=== PATIENT | female | born 2000 | race Two or more races ===

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

== ENCOUNTER 2021-04-13 14:45 | Emergency (ER) | payer MEDICAID ==
[2021-04-13] MEDS ORDERED: Sodium Chloride 0.9% 10 ML Syringe FLUSH PRN (15:30)
[2021-04-13] MEDS ORDERED: Metoclopramide 10 MG/2 ML SDV IVPUSH ONE (15:31)
[2021-04-13] MEDS ORDERED: diphenhydrAMINE 50 MG/ML SDV IVPUSH ONE (15:31)
[2021-04-13] MEDS ORDERED: Ketorolac 30 MG/ML SDV IVPUSH ONE (15:31)
--- NOTE | 2021-04-13 15:49 | EDM.PDOC ---
ED HPI GENERAL MEDICAL PROBLEM - General Chief Complaint: Headache Stated Complaint: poss COVID Time Seen by Provider: 04/13/21 15:29 Source of Information: Reports: Patient, RN Notes Reviewed History Limitations: Reports: No Limitations - History of Present Illness INITIAL COMMENTS - FREE TEXT/NARRATIVE: Patient is a 20-year-old female who presents to the ER for the evaluation of her headache, and other [id number] symptoms. Patient states that she was positive for COVID-19 in August 2020. States that she felt well up until about 3 days ago, when she developed a generalized headache, low back pain/body aches, but no fevers, chills, or any sort of nausea or vomiting. She is having some generalized looser stools however she does not feel dizzy or lightheaded, and is able to eat and drink appropriately. Patient states that her headache is not the worst headache she is ever had in her whole entire life, but it is somewhat bothersome. She did try to take some Tylenol ibuprofen for management today, helped a little bit but states that the headache came back in a short amount of time. She states that she did not like taking medications too much. She denies any chance of at today's visit. She did not receive COVID-19 vaccine after her initial Covid infection. Head Pain Score (Numeric/FACES): 8 - Related Data Allergies Allergy/AdvReac Type Severity Reaction Status Date / Time misquito Allergy Mild Hives Uncoded 04/13/21 15:32 Home Meds: Home Meds Cefdinir [Omnicef] 300 mg PO BID 5 Days #10 cap 04/13/21 [Rx] dexAMETHasone [Decadron] 6 mg PO DAILY 10 Days #10 tablet 04/13/21 [Rx] norgestrel-ethinyl estradioL [Elinest-28 Tablet] 1 tab PO DAILY 04/13/21 [History] Past Medical History HEENT History: Reports: Impaired Vision Cardiovascular History: Reports: Other (See Below) Other Cardiovascular History: "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 Respiratory History: Reports: Asthma, Bronchitis, Recurrent STERILE SUPERVISOR History: Reports: Other (See Below) Other STERILE SUPERVISOR History: Herpes simplex 2 Musculoskeletal History: Reports: Back Pain, Chronic Psychiatric History: Reports: Anxiety, Depression - Infectious Disease History Infectious Disease History: Reports: Herpes, Novel Coronavirus (08/2020) - Past Surgical History GI Surgical History: Reports: Appendectomy Social & Family History - Family History Family Medical History: No Pertinent Family History - Tobacco Use Tobacco Use Status *Q: Never Tobacco User Second Hand Smoke Exposure: No - Caffeine Use Caffeine Use: Reports: Soda - Recreational Drug Use Recreational Drug Use: No - Living Situation & Occupation Living situation: Reports: Single Occupation: Employed ED ROS GENERAL - Review of Systems Review Of Systems: Comprehensive ROS is negative, except as noted in HPI. - Physical Exam Exam: See Below Exam Limited By: No Limitations General Appearance: Alert, WD/WN, No Apparent Distress Respiratory/Chest: No Respiratory Distress, Lungs Clear, Normal Breath Sounds, No Accessory Muscle Use, Chest Non-Tender Cardiovascular: Normal Peripheral Pulses, Regular Rate, Rhythm, No Edema Neuro Exam (Abbreviated): Alert, Oriented, Normal Cognition, No Motor/Sensory Deficits Extremities: Normal Inspection, Normal Capillary Refill Psychiatric: Normal Affect, Normal Mood Skin Exam: Warm, Dry, Intact, Normal Color, No Rash Course - Vital Signs Last Recorded V/S: Last Vital Signs Temp 97.6 F 04/13/21 15:33 Pulse 103 H 04/13/21 15:33 Resp 16 04/13/21 15:33 BP 131/83 04/13/21 15:33 Pulse Ox 98 04/13/21 15:33 - Orders/Labs/Meds Orders: Active Orders 24 hr Category Date Time Status Peripheral IV Care [RC] . DIRECTED Care 04/13/21 15:31 Ordered CULTURE URINE [MREF] Urgent Lab 04/13/21 16:43 Ordered Sodium Chloride 0.9% [Saline Flush] Med 04/13/21 15:30 Ordered 10 ml FLUSH ASDIRECTED PRN Peripheral IV Insertion Adult [OM.PC] Routine Oth 04/13/21 15:30 Ordered Medication Orders Sodium Chloride (Sodium Chloride 0.9% 10 Ml Syringe) 10 ml FLUSH ASDIRECTED PRN PRN Reason: Keep Vein Open Last Admin: 04/13/21 15:59 Dose: 10 ml Documented by: STEPHANIE Labs: Laboratory Tests 04/13/21 04/13/21 04/13/21 Range/Units 16:00 16:00 16:03 WBC 4.30 (3.98-10.04) K/mm3 RBC 4.65 (3.98-5.22) M/mm3 Hgb 14.8 (11.2-15.7) gm/dl Hct 43.8 (34.1-44.9) % MCV 94.2 D (79.4-94.8) fl MCH 31.8 (25.6-32.2) pg MCHC 33.8 (32.2-35.5) g/dl RDW Std Deviation 43.8 (36.4-46.3) fL Plt Count 320 (182-369) K/mm3 MPV 10.0 (9.4-12.3) fl Neut % (Auto) 62.1 (34.0-71.1) % Lymph % (Auto) 17.9 L (19.3-51.7) % [place] % (Auto) 18.8 H (4.7-12.5) % Eos % (Auto) 0.5 L (0.7-5.8) Baso % (Auto) 0.5 (0.1-1.2) % Neut # (Auto) 2.67 (1.56-6.13) K/mm3 Lymph # (Auto) 0.77 L (1.18-3.74) K/mm3 [place] # (Auto) 0.81 H (0.24-0.36) K/mm3 Eos # (Auto) 0.02 L (0.04-0.36) K/mm3 Baso # (Auto) 0.02 (0.01-0.08) K/mm3 Sodium 136 (136-145) mEq/L Potassium 3.6 (3.5-5.1) mEq/L Chloride 101 (98-107) mEq/L Carbon Dioxide 27 (21-32) mEq/L Anion Gap 11.6 (5-15) BUN 9 (7-18) mg/dL Creatinine 0.8 (0.55-1.02) mg/dL Est Cr Clr Drug Dosing TNP Estimated GFR (MDRD) > 60 (>60) mL/min BUN/Creatinine Ratio 11.3 L (14-18) Glucose 82 (70-99) mg/dL Calcium 8.8 (8.5-10.1) mg/dL Total Bilirubin 0.6 (0.2-1.0) mg/dL AST 20 (15-37) U/L ALT 23 (14-59) U/L Alkaline Phosphatase 77 (46-116) U/L C-Reactive Protein 1.2 H* (<1.0) mg/dL Total Protein 8.4 H (6.4-8.2) g/dl Albumin 4.2 (3.4-5.0) g/dl Globulin 4.2 gm/dL Albumin/Globulin Ratio 1.0 (1-2) Urine Color Yellow (Yellow) Urine Appearance Cloudy H (Clear) Urine pH 6.0 (5.0-8.0) Ur Specific [place] > or = 1.030 (1.005-1.030) Urine Protein Trace H (Negative) Urine Glucose (UA) Negative (Negative) Urine Ketones 4+ H (Negative) Urine Occult Blood Trace-intact H (Negative) Urine Nitrite Positive H (Negative) Urine Bilirubin Negative (Negative) Urine Urobilinogen 0.2 (0.2-1.0) Ur Leukocyte Esterase Negative (Negative) Urine RBC 0-5 (0-5) /hpf Urine WBC 0-5 (0-5) /hpf Ur Squamous Epith Cells 0-5 (0-5) /hpf Urine Bacteria Many H (FEW) /hpf Urine Mucus Few (FEW) /hpf SARS-CoV-2 RNA (MIKKI) (NEGATIVE) 04/13/21 Range/Units 16:15 WBC (3.98-10.04) K/mm3 RBC (3.98-5.22) M/mm3 Hgb (11.2-15.7) gm/dl Hct (34.1-44.9) % MCV (79.4-94.8) fl MCH (25.6-32.2) pg MCHC (32.2-35.5) g/dl RDW Std Deviation (36.4-46.3) fL Plt Count (182-369) K/mm3 MPV (9.4-12.3) fl Neut % (Auto) (34.0-71.1) % Lymph % (Auto) (19.3-51.7) % [place] % (Auto) (4.7-12.5) % Eos % (Auto) (0.7-5.8) Baso % (Auto) (0.1-1.2) % Neut # (Auto) (1.56-6.13) K/mm3 Lymph # (Auto) (1.18-3.74) K/mm3 [place] # (Auto) (0.24-0.36) K/mm3 Eos # (Auto) (0.04-0.36) K/mm3 Baso # (Auto) (0.01-0.08) K/mm3 Sodium (136-145) mEq/L Potassium (3.5-5.1) mEq/L Chloride (98-107) mEq/L Carbon Dioxide (21-32) mEq/L Anion Gap (5-15) BUN (7-18) mg/dL Creatinine (0.55-1.02) mg/dL Est Cr Clr Drug Dosing Estimated GFR (MDRD) (>60) mL/min BUN/Creatinine Ratio (14-18) Glucose (70-99) mg/dL Calcium (8.5-10.1) mg/dL Total Bilirubin (0.2-1.0) mg/dL AST (15-37) U/L ALT (14-59) U/L Alkaline Phosphatase (46-116) U/L C-Reactive Protein (<1.0) mg/dL Total Protein (6.4-8.2) g/dl Albumin (3.4-5.0) g/dl Globulin gm/dL Albumin/Globulin Ratio (1-2) Urine Color (Yellow) Urine Appearance (Clear) Urine pH (5.0-8.0) Ur Specific [place] (1.005-1.030) Urine Protein (Negative) Urine Glucose (UA) (Negative) Urine Ketones (Negative) Urine Occult Blood (Negative) Urine Nitrite (Negative) Urine Bilirubin (Negative) Urine Urobilinogen (0.2-1.0) Ur Leukocyte Esterase (Negative) Urine RBC (0-5) /hpf Urine WBC (0-5) /hpf Ur Squamous Epith Cells (0-5) /hpf Urine Bacteria (FEW) /hpf Urine Mucus (FEW) /hpf SARS-CoV-2 RNA (MIKKI) Positive H (NEGATIVE) Meds: Medications Generic Name Dose Route Start Last Admin Trade Name Freq PRN Reason Stop Dose Admin Sodium Chloride 10 ml 04/13/21 15:30 04/13/21 15:59 Sodium Chloride 0.9% 10 Ml Syringe FLUSH 10 ml ASDIRECTED PRN Administration Keep Vein Open Discontinued Medications Generic Name Dose Route Start Last Admin Trade Name [place] PRN Reason Stop Dose Admin Diphenhydramine HCl 25 mg 04/13/21 15:31 04/13/21 15:59 Diphenhydramine 50 Mg/Ml Sdv IVPUSH 04/13/21 15:32 25 mg ONETIME ONE Administration Ketorolac Tromethamine 30 mg 04/13/21 15:31 04/13/21 15:59 Ketorolac 30 Mg/Ml Sdv IVPUSH 04/13/21 15:32 30 mg ONETIME ONE Administration Metoclopramide HCl 10 mg 04/13/21 15:31 04/13/21 16:01 Metoclopramide 10 Mg/2 Ml Sdv IVPUSH 04/13/21 15:32 10 mg ONETIME ONE Administration - Re-Assessments/Exams Free Text/Narrative Re-Assessment/Exam: 04/13/21 15:48 Patient presents to the ER for the evaluation of her headache, and other COVID- 19 symptoms, we will go ahead and get a coronavirus swab for today's purposes, give her some medication for her headache, get some basic labs for initial evaluation. 04/13/21 16:56 Urinalysis is positive for a UTI, and the patient's Covid screen did also come back positive. We will go ahead and discharge her home with a course of oral dexamethasone, and oral antibiotics for ongoing management. Departure - Departure Time of Disposition: 16:57 Disposition: Home, Self-Care 01 Condition: Good Clinical Impression: COVID-19 UTI (urinary tract infection) Qualifiers: Urinary tract infection type: acute cystitis Hematuria presence: with hematuria Qualified Code(s): N30.01 - Acute cystitis with hematuria - Discharge Information *PRESCRIPTION DRUG MONITORING PROGRAM REVIEWED*: No *COPY OF PRESCRIPTION DRUG MONITORING REPORT IN PATIENT [place]: No Prescriptions: dexAMETHasone [Decadron] 6 mg PO DAILY 10 Days #10 tablet Cefdinir [Omnicef] 300 mg PO BID 5 Days #10 cap Instructions: 10 Things You Can Do to Manage Your COVID-19 Symptoms at Home - [facility] (02/04/2020) Forms: ED Department Discharge, ED Return to Work/School Form Additional Instructions: You have been evaluated in the ED for your back pain, and ongoing respiratory symptoms. Your urinalysis was consistent with an acute urinary tract infection. Your urine was sent for culture, and you will be notified if you should need a change in your antibiotic. This may take up to 48 hours to result. Your Covid screen did also come back positive for today's purposes, you will need to isolate yourself away from others, for at least 10 days, or and told otherwise by the [facility]. A work note has been provided to her to reflect this. You have been given a prescription for dexamethasone, you will take 1 tablet daily for the next 10 days for ongoing COVID-19 disease. You may take AZO for urinary pain relief. This is available over the counter, and can be attained at any retail store like [employer] or any pharmacy. Please be aware that this medication will make your urine turn orange. You should only use this medication for a time period not longer than 72 hours. You have been given a prescription for Omnicef (cefdinir), 300 mg 1 tablet 2 times a day for 5 days. Please note that the antibiotics can take up to 48 hours to start working. This medication was electronically sent to the [facility] pharmacy located on [address]. Please increase your oral fluid intake and try to stay adequately hydrated. Please return to the ED if your symptoms change or worsen. Sepsis Event Note (ED) - Evaluation Sepsis Screening Result: Possible Sepsis Risk - Focused Exam Vital Signs: Vital Signs Temp Pulse Resp BP Pulse Ox 04/13/21 15:33 97.6 F 103 H 16 131/83 98 - My Orders Last 24 Hours: My Active Orders 04/13/21 15:30 Sodium Chloride 0.9% [Saline Flush] 10 ml FLUSH ASDIRECTED PRN Peripheral IV Insertion Adult [OM.PC] Routine 04/13/21 15:31 Peripheral IV Care [RC] . DIRECTED 04/13/21 16:43 CULTURE URINE [MREF] Urgent - Assessment/Plan Last 24 Hours: My Active Orders 04/13/21 15:30 Sodium Chloride 0.9% [Saline Flush] 10 ml FLUSH ASDIRECTED PRN Peripheral IV Insertion Adult [OM.PC] Routine 04/13/21 15:31 Peripheral IV Care [RC] . DIRECTED 04/13/21 16:43 CULTURE URINE [MREF] Urgent
== END 2021-04-13 17:13 | disposition home or self-care (01) ==
LOC: JD.ED 14:45
DX: U07.1 COVID-19 (principal); N30.01 Acute cystitis with hematuria; Z91.09 Other allergy status, other than to drugs and biological substances
CPT/HCPCS: 36415; 80053; 81001; 85025; 86140; 87086; 87088; 87186; 87635; 96374; 96375; 99284; J1200; J1885; J2765; U0002

== ENCOUNTER 2021-06-25 07:24 | Emergency (ER) | payer MEDICAID ==
--- NOTE | 2021-06-25 07:53 | EDM.PDOC ---
ED HPI GENERAL MEDICAL PROBLEM - General Chief Complaint: General Stated Complaint: SOB/HAD COVID 3 MONTHS AGO Time Seen by Provider: 06/25/21 07:48 Source of Information: Reports: Patient History Limitations: Reports: No Limitations - History of Present Illness INITIAL COMMENTS - FREE TEXT/NARRATIVE: 20-year-old female presents to the ED with acute onset of fever chills body a ches, headache loss of appetite, nausea and vomiting mild diarrhea. She states she had COVID-19 3 months ago and had a relatively mild illness. She is just starting to cough not producing any sputum. Complains of sore throat and inability to eat. Pain radiates up into ears with swallowing. She still has her tonsils. Symptoms started approximately 2-1/2 days ago. She denies any possibility of . Onset: Gradual Onset Date: 06/23/21 Duration: Day(s):, Constant, Getting Worse Location: Reports: Head ( headache), Neck (Sore throat), Chest (Minimal cough), Generalized (Generalized myalgia), Other (High fever with chills.) Quality: Reports: Ache (Generalized body aches), Other (Headache) Severity: Moderate Improves with: Reports: Rest Worsens with: Reports: Movement Context: Denies: Activity, Exercise, Lifting, Sick Contact, Trauma, Other Associated Symptoms: Reports: Cough, Fever/Chills, Loss of Appetite, Malaise, Nausea/Vomiting (Fever and chills starting 2 and half days ago), Weakness ( nausea and vomiting cannot keep water down this morning generalized weakness). 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) (Nothing will stay down.) headache Pain Score (Numeric/FACES): 8 back Pain Score (Numeric/FACES): 8 - Related Data Allergies Allergy/AdvReac Type Severity Reaction Status Date / Time misquito Allergy Mild Hives Uncoded 06/25/21 07:43 Home Meds: Home Meds norgestrel-ethinyl estradioL [Elinest-28 Tablet] 1 tab PO DAILY 04/13/21 [History] Cefdinir [Omnicef] 300 mg PO BID #14 cap 06/25/21 [Rx] valACYclovir HCl [valACYclovir] 06/25/21 [History] Past Medical History HEENT History: Reports: Impaired Vision Cardiovascular History: Reports: Other (See Below) Other Cardiovascular History: "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 History: Herpes simplex 2 Musculoskeletal History: Reports: Back Pain, Chronic Psychiatric History: Reports: Anxiety, Depression - Infectious Disease History Infectious Disease History: Reports: Herpes, Novel Coronavirus - Past Surgical History Head Surgeries/Procedures: Reports: None GI Surgical History: Reports: Appendectomy Female Surgical History: Reports: None Social & Family History - Family History Family Medical History: No Pertinent Family History - Tobacco Use Tobacco Use Status *Q: Never Tobacco User - Caffeine Use Caffeine Use: Reports: Soda - Recreational Drug Use Recreational Drug Use: No - Living Situation & Occupation Living situation: Reports: Single Occupation: Employed ED ROS GENERAL - Review of Systems Review Of Systems: See Below Constitutional: Reports: Fever, Chills, Malaise, Weakness, Fatigue, Decreased Appetite HEENT: Reports: Throat Pain (Pain radiates up into ears with swallowing) Respiratory: Reports: Shortness of Breath, Cough. Denies: Wheezing, Pleuritic Chest Pain, Sputum, Hemoptysis (Nonproductive) Cardiovascular: Denies: Chest Pain, Blood Pressure Problem, Claudication, Dyspnea on Exertion, Edema, Lightheadedness, Orthopnea, Palpitations Endocrine: Reports: Fatigue GI/Abdominal: Reports: Diarrhea (Mild diarrhea twice yellow in color), Decreased Appetite, Nausea, Vomiting (Nothing will stay down even water this morning) : Reports: Other (Urine is dark and [place] in color) Musculoskeletal: Reports: Muscle Pain (Generalized myalgia) Skin: Reports: No Symptoms Neurological: Reports: Dizziness, Headache. Denies: Confusion, Pre-Existing Deficit, Seizure, Trouble Speaking, Difficulty Walking, Weakness Psychiatric: Reports: No Symptoms Hematologic/Lymphatic: Reports: No Symptoms Immunologic: Reports: No Symptoms ED EXAM, GENERAL - Physical Exam Exam: See Below Exam Limited By: No Limitations General Appearance: Alert, WD/WN, Mild Distress, Other (Very warm to palpation. Recorded temperature is 36.8 but this is incorrect she is much warmer than this. Heart rate is 120 and sinus at the bedside respiratory is 20 with a BP of 120/80 and a pulse ox of 100% room air.) Eye Exam: Bilateral Eye: Normal Inspection (No blepharal pallor or scleral icterus) Ears: Normal TMs Throat/Mouth: Other (Mild diffuse erythema of the oropharynx without exudate.) Head: Atraumatic, Normocephalic Neck: Normal Inspection, Supple, Non-Tender, Full Range of Motion. No: Carotid Bruit, Lymphadenopathy (L), Lymphadenopathy (R) Respiratory/Chest: Lungs Clear, Normal Breath Sounds, No Accessory Muscle Use, Respiratory Distress (Mild tachypnea secondary to fever.) Cardiovascular: Normal Peripheral Pulses, Regular Rate, Rhythm, No Edema, No Gallop, No Murmur, No Rub Peripheral Pulses: 3+: Carotid (L), Carotid (R), Posterior Tibial (L), Posterior Tibial (R), Dorsalis Pedis (L), Dorsalis Pedis (R) GI/Abdominal: Normal Bowel Sounds, Soft, Non-Tender, No Organomegaly, No Distention, Other (Evidence of previous laparoscopic appendectomy) Back Exam: Normal Inspection, Full Range of Motion. No: CVA Tenderness (L), CVA Tenderness (R) Extremities: Normal Inspection, Normal Range of Motion, Non-Tender, No Pedal Edema Neurological: Alert, Oriented, CN II-XII Intact, Normal Cognition Psychiatric: Normal Affect, Normal Mood Skin Exam: Warm, Dry, Normal Color, No Rash Course - Vital Signs Last Recorded V/S: Last Vital Signs Temp 36.5 C 06/25/21 10:00 Pulse 88 06/25/21 10:00 Resp 16 06/25/21 10:00 BP 101/59 L 06/25/21 10:00 Pulse Ox 99 06/25/21 10:00 - Orders/Labs/Meds Orders: Active Orders 24 hr Category Date Time Status BLOOD CULTURE [MREF] Stat Lab 06/25/21 08:50 Received Dextrose 5%-0.9% NaCl [Dextrose 5%-Normal Saline] 1,000 Med 06/25/21 08:00 Active ml IV ASDIRECTED Ketorolac [Toradol] Med 06/25/21 08:00 Active 30 mg IVPUSH ONETIME Blood Culture x2 Reflex Set [OM.PC] Stat Oth 06/25/21 07:55 Ordered Medication Orders Dextrose/Sodium Chloride (Dextrose 5%-Normal Saline) 1,000 mls @ 999 mls/hr IV ASDIRECTED [facility] Last Admin: 06/25/21 08:12 Dose: 999 mls/hr Documented by: TUCKER Ketorolac Tromethamine (Ketorolac 30 Mg/Ml Sdv) 30 mg IVPUSH ONETIME [facility] Last Admin: 06/25/21 08:10 Dose: 30 mg Documented by: TUCKER Labs: Laboratory Tests 06/25/21 06/25/21 06/25/21 Range/Units 07:50 08:01 08:01 WBC 17.47 H (3.98-10.04) K/mm3 RBC 4.31 (3.98-5.22) M/mm3 Hgb 13.8 (11.2-15.7) gm/dl Hct 40.2 (34.1-44.9) % MCV 93.3 (79.4-94.8) fl MCH 32.0 (25.6-32.2) pg MCHC 34.3 (32.2-35.5) g/dl RDW Std Deviation 41.6 (36.4-46.3) fL Plt Count 298 (182-369) K/mm3 MPV 10.9 (9.4-12.3) fl Neutrophils % (Manual) 85 H (40-60) % Band Neutrophils % 0 (0-10) % Lymphocytes % (Manual) 10 L (20-40) % Atypical Lymphs % 0 % Monocytes % (Manual) 5 (2-10) % Eosinophils % (Manual) 0 L (0.7-5.8) % Basophils % (Manual) 0 L (0.1-1.2) Platelet Estimate Adequate RBC Morph Comment Normal Sodium 136 (136-145) mEq/L Potassium 4.0 (3.5-5.1) mEq/L Chloride 101 (98-107) mEq/L Carbon Dioxide 20 L (21-32) mEq/L Anion Gap 19.0 H (5-15) BUN 8 (7-18) mg/dL Creatinine 0.5 L (0.55-1.02) mg/dL Est Cr Clr Drug Dosing 147.23 mL/min Estimated GFR (MDRD) > 60 (>60) mL/min BUN/Creatinine Ratio 16.0 (14-18) Glucose 96 (70-99) mg/dL Lactic Acid (0.4-2.0) mmol/L Calcium 9.0 (8.5-10.1) mg/dL Total Bilirubin 0.8 (0.2-1.0) mg/dL AST 29 (15-37) U/L ALT 17 (14-59) U/L Alkaline Phosphatase 78 (46-116) U/L C-Reactive Protein 8.5 H* (<1.0) mg/dL Total Protein 7.7 (6.4-8.2) g/dl Albumin 4.0 (3.4-5.0) g/dl Globulin 3.7 gm/dL Albumin/Globulin Ratio 1.1 (1-2) Urine Color (Yellow) Urine Appearance (Clear) Urine pH (5.0-8.0) Ur Specific [place] (1.005-1.030) Urine Protein (Negative) Urine Glucose (UA) (Negative) Urine Ketones (Negative) Urine Occult Blood (Negative) Urine Nitrite (Negative) Urine Bilirubin (Negative) Urine Urobilinogen (0.2-1.0) Ur Leukocyte Esterase (Negative) Urine RBC (0-5) /hpf Urine WBC (0-5) /hpf Ur Squamous Epith Cells (0-5) /hpf Urine Bacteria (FEW) /hpf Urine Mucus (FEW) /hpf Influenza Type A RNA Negative (NEGATIVE) Influenza Type B RNA Negative (NEGATIVE) SARS-CoV-2 RNA (MIKKI) Negative (NEGATIVE) Group A Strep (PCR) (NOT DETECT) 06/25/21 06/25/21 06/25/21 Range/Units 08:24 08:50 09:20 WBC (3.98-10.04) K/mm3 RBC (3.98-5.22) M/mm3 Hgb (11.2-15.7) gm/dl Hct (34.1-44.9) % MCV (79.4-94.8) fl MCH (25.6-32.2) pg MCHC (32.2-35.5) g/dl RDW Std Deviation (36.4-46.3) fL Plt Count (182-369) K/mm3 MPV (9.4-12.3) fl Neutrophils % (Manual) (40-60) % Band Neutrophils % (0-10) % Lymphocytes % (Manual) (20-40) % Atypical Lymphs % % Monocytes % (Manual) (2-10) % Eosinophils % (Manual) (0.7-5.8) % Basophils % (Manual) (0.1-1.2) Platelet Estimate RBC Morph Comment Sodium (136-145) mEq/L Potassium (3.5-5.1) mEq/L Chloride (98-107) mEq/L Carbon Dioxide (21-32) mEq/L Anion Gap (5-15) BUN (7-18) mg/dL Creatinine (0.55-1.02) mg/dL Est Cr Clr Drug Dosing mL/min Estimated GFR (MDRD) (>60) mL/min BUN/Creatinine Ratio (14-18) Glucose (70-99) mg/dL Lactic Acid 1.2 (0.4-2.0) mmol/L Calcium (8.5-10.1) mg/dL Total Bilirubin (0.2-1.0) mg/dL AST (15-37) U/L ALT (14-59) U/L Alkaline Phosphatase (46-116) U/L C-Reactive Protein (<1.0) mg/dL Total Protein (6.4-8.2) g/dl Albumin (3.4-5.0) g/dl Globulin gm/dL Albumin/Globulin Ratio (1-2) Urine Color Light yellow (Yellow) Urine Appearance Clear (Clear) Urine pH 6.0 (5.0-8.0) Ur Specific [place] 1.020 (1.005-1.030) Urine Protein Negative (Negative) Urine Glucose (UA) 2+ H (Negative) Urine Ketones 2+ H (Negative) Urine Occult Blood Negative (Negative) Urine Nitrite Negative (Negative) Urine Bilirubin Negative (Negative) Urine Urobilinogen 0.2 (0.2-1.0) Ur Leukocyte Esterase Negative (Negative) Urine RBC 0-5 (0-5) /hpf Urine WBC 0-5 (0-5) /hpf Ur Squamous Epith Cells 0-5 (0-5) /hpf Urine Bacteria Few (FEW) /hpf Urine Mucus Few (FEW) /hpf Influenza Type A RNA (NEGATIVE) Influenza Type B RNA (NEGATIVE) SARS-CoV-2 RNA (MIKKI) (NEGATIVE) Group A Strep (PCR) Not detected (NOT DETECT) Meds: Medications Generic Name Dose Route Start Last Admin Trade Name Idalia PRN Reason Stop Dose Admin Dextrose/Sodium Chloride 1,000 mls @ 999 mls/hr 06/25/21 08:00 06/25/21 08:12 Dextrose 5%-Normal Saline IV 999 mls/hr ASDIRECTED EDY Administration Ketorolac Tromethamine 30 mg 06/25/21 08:00 06/25/21 08:10 Ketorolac 30 Mg/Ml Sdv IVPUSH 30 mg ONETIME EDY Administration Discontinued Medications Generic Name Dose Route Start Last Admin Trade Name Idalia PRN Reason Stop Dose Admin Acetaminophen 975 mg 06/25/21 07:59 06/25/21 08:13 Acetaminophen 325 Mg Tab PO 06/25/21 08:00 975 mg ONETIME ONE Administration Ceftriaxone Sodium 2 gm/ 100 mls @ 200 mls/hr 06/25/21 09:13 06/25/21 09:24 Sodium Chloride IV 06/25/21 09:42 200 mls/hr ONETIME ONE Administration Metoclopramide HCl 7.5 mg 06/25/21 07:57 06/25/21 08:08 Metoclopramide 10 Mg/2 Ml Sdv IVPUSH 06/25/21 07:58 7.5 mg ONETIME ONE Administration - Radiology Interpretation Free Text/Narrative:: 20-year-old female presents to the ED with a 2-1/2-day history of fever chills headache diffuse myalgia, sore throat, nausea and vomiting with mild diarrhea. Minimal cough. All signs symptoms of COVID-19 illness. She reports she had COVID-19 illness diagnosed 3 months ago. She works at [employer]. She has not been vaccinated and should have natural immunity to COVID-19 if it test was positive. At present she appears ill and is quite warm to palpation. Septic work-up will be performed. This will include rapid strep and urinalysis. 1 view chest x-ray. IV will be D5 normal saline at open. Given Reglan 7.5 mg IV for nausea relief. Will give Tylenol 975 mg per ora 20 minutes after the Reglan has been infused. Toradol 30 mg IV for generalized myalgia - Re-Assessments/Exams Free Text/Narrative Re-Assessment/Exam: 06/25/21 08:40 portable chest x-ray reveals no abnormalities. Heart and mediastinum are normal. Lungs are clear.White count is elevated at 17.47 with a left shift of 85% neutrophils. Hemoglobin is 13.8 with hematocrit of 40.2 and a platelet count of tender 98,000 06/25/21 09:05 Chemistry reveals a sodium 136 and a potassium of 4.0. Chloride is 101 with a bicarb of 20 and an anion gap of 19.0 BUN is 8 with a creatinine of 0.5 and a GFR greater than 60. Glucose is 96. Calcium is 9.0 liver function is normal. C-reactive protein elevated 8.5 total protein 7.7 with an albumin fraction of 4.0 06/25/21 09:13 I am going to proceed with Rocephin 2 g intravenously due to elevated white count and CRP of 8.3 suggesting bacterial infection likely coming from her throat. Unfortunately the rapid strep is Covid and influenza screen are not yet available 06/25/21 10:23 Urinalysis shows 2+ glucosuria and 2+ ketones. The micro is negative for any signs of infection. Influenza and COVID-19 screen are negative. Rapid strep is negative as well. Since she is coughing diagnosis is bronchitis without pneumonia. I am going to place her on Omnicef 300 mg twice daily for another 7 days starting tomorrow morning. She has completed her Rocephin infusion Departure - Departure Time of Disposition: 10:32 Disposition: Home, Self-Care 01 Condition: Fair Clinical Impression: Upper respiratory tract infection Qualifiers: URI type: unspecified URI Qualified Code(s): J06.9 - Acute upper respiratory infection, unspecified - Discharge Information *PRESCRIPTION DRUG MONITORING PROGRAM REVIEWED*: Not Applicable *COPY OF PRESCRIPTION DRUG MONITORING REPORT IN PATIENT [place]: Not Applicable Prescriptions: Cefdinir [Omnicef] 300 mg PO BID #14 cap Referrals: Bri Silver NP [Primary Care Provider] - Forms: ED Department Discharge Additional Instructions: Evaluation in the emergency room this morning in regards to sore throat generalized myalgia headache and mild early cough concerning for possible COVID- 19 illness. By history you had COVID-19 illness 3 months ago. You should have antibodies that last a good 6 to 8 months against this virus. However with the variance Covid screen was once again completed and proved to be negative. Influenza screen was negative is as well. Chest x-ray was negative for any signs of pneumonia at this time. Lab test however reveal evidence of bacterial infection with a elevated white blood cell count and a CRP elevated at 8.3 normal is 1. You are treated with initial dose of antibiotics Rocephin 2 g intravenously in the emergency room. You will need to take oral antibiotic Omnicef 300 mg twice daily for the next 7 days with the first tablet to be taken tomorrow morning. Continue either Tylenol 650 mg every 4 hours or Motrin 600 mg every 6 hours for fever, body aches and headache relief. Expect improvement ov er the next 48 to 72 hours if not you need to be seen again by your personal care physician. Sepsis Event Note (ED) - Evaluation Sepsis Screening Result: No Definite Risk - Focused Exam Vital Signs: Vital Signs Temp Pulse Resp BP Pulse Ox 06/25/21 10:00 36.5 C 88 16 101/59 L 99 06/25/21 07:37 36.8 C 119 H 20 120/80 100 - My Orders Last 24 Hours: My Active Orders 06/25/21 07:55 Blood Culture x2 Reflex Set [OM.PC] Stat 06/25/21 08:00 Dextrose 5%-0.9% NaCl [Dextrose 5%-Normal Saline] 1,000 ml IV ASDIRECTED Ketorolac [Toradol] 30 mg IVPUSH ONETIME 06/25/21 08:50 BLOOD CULTURE [MREF] Stat - Assessment/Plan Last 24 Hours: My Active Orders 06/25/21 07:55 Blood Culture x2 Reflex Set [OM.PC] Stat 06/25/21 08:00 Dextrose 5%-0.9% NaCl [Dextrose 5%-Normal Saline] 1,000 ml IV ASDIRECTED Ketorolac [Toradol] 30 mg IVPUSH ONETIME 06/25/21 08:50 BLOOD CULTURE [MREF] Stat
[2021-06-25] MEDS ORDERED: Metoclopramide 10 MG/2 ML SDV IVPUSH ONE (07:57)
[2021-06-25] MEDS ORDERED: Acetaminophen 325 MG Tab PO ONE (07:59)
[2021-06-25] MEDS ORDERED: Dextrose 5%-0.9% NaCl 1,000 ML IV SCH (08:00)
[2021-06-25] MEDS ORDERED: Ketorolac 30 MG/ML SDV IVPUSH SCH (08:00)
--- NOTE | 2021-06-25 08:42 | CR ---
Chest: Frontal view of the chest was obtained. Comparison: Prior chest x-ray of 12/24/17. Heart size and mediastinum are normal. Lungs are clear with no acute parenchymal change. No acute osseous abnormality is appreciated. Impression: 1. Nothing acute is seen on frontal chest x-ray. Diagnostic code #1
[2021-06-25] MEDS ORDERED: cefTRIAXone 2 GM in Sodium Chloride 0.9% 100 ML IV ONE (09:13)
[2021-06-25 09:58] LABS: CORONAVIRUS COVID-19 NAA NEGATIVE (NEGATIVE)
== END 2021-06-25 10:45 | disposition home or self-care (01) ==
LOC: JD.ED 07:24
DX: J06.9 Acute upper respiratory infection, unspecified (principal); J45.909 Unspecified asthma, uncomplicated; Z91.048 Other nonmedicinal substance allergy status; Z20.822 Contact with and (suspected) exposure to COVID-19
CPT/HCPCS: 0240U; 36415; 71045; 80053; 81001; 83605; 85007; 85027; 86140; 87040; 87651; 96365; 96375; 99284; A9270; J0696; J1885; J2765; J7042

== ENCOUNTER 2021-09-07 08:57 | Emergency (ER) | payer MEDICAID | END 2021-09-07 09:41 | disposition left against medical advice (07) | LOC: JD.ED 08:57 | DX: Z53.21 Procedure and treatment not carried out due to patient leaving prior to being seen by health care provider (principal) ==

== ENCOUNTER 2021-11-05 16:14 | Emergency (ER) | payer MEDICAID | END 2021-11-05 19:54 | disposition home or self-care (01) | LOC: JD.ED 16:14 | DX: O99.891 Other specified diseases and conditions complicating pregnancy (principal); R10.2 Pelvic and perineal pain; O99.511 Diseases of the respiratory system complicating pregnancy, first trimester; J06.9 Acute upper respiratory infection, unspecified; Z91.09 Other allergy status, other than to drugs and biological substances; Z3A.01 Less than 8 weeks gestation of pregnancy | CPT/HCPCS: 36415; 76817; 76817-26; 80053; 81001; 84702; 85025; 99284-25 ==

== ENCOUNTER 2021-11-13 12:19 | Emergency (ER) | payer MEDICAID ==
[2021-11-13] MEDS ORDERED: Cephalexin 500 MG Cap PO ONE (14:17)
== END 2021-11-13 14:45 | disposition home or self-care (01) ==
LOC: JD.ED 12:19
DX: N30.00 Acute cystitis without hematuria (principal); Z91.048 Other nonmedicinal substance allergy status
CPT/HCPCS: 36415; 80053; 81001; 83735; 85025; 86140; 87086; 99284; A9270; 87088; 87186

== ENCOUNTER 2021-12-05 09:52 | Emergency (ER) | payer MEDICAID ==
[2021-12-05] MEDS ORDERED: Sodium Chloride 0.9% 1,000 ML IV STA (10:16)
[2021-12-05] MEDS ORDERED: Sodium Chloride 0.9% 10 ML Syringe FLUSH PRN (10:16)
[2021-12-05] MEDS ORDERED: Metoclopramide 10 MG/2 ML SDV IVPUSH ONE (10:16)
[2021-12-05] MEDS ORDERED: diphenhydrAMINE 50 MG/ML SDV IVPUSH ONE (10:18)
[2021-12-05] MEDS ORDERED: Ketorolac 15 MG/ML SDV IVPUSH ONE (10:18)
== END 2021-12-05 12:30 | disposition home or self-care (01) ==
LOC: JD.ED 09:52
DX: O21.9 Vomiting of pregnancy, unspecified (principal); Z3A.11 11 weeks gestation of pregnancy; Z91.09 Other allergy status, other than to drugs and biological substances; Z86.16 Personal history of COVID-19
CPT/HCPCS: 36415; 80053; 83690; 84702; 85025; 86140; 96374; 96375; 99284; J1200; J1885; J2765; J3490; J7030

== ENCOUNTER 2022-01-02 15:23 | Emergency (ER) | payer MEDICAID | END 2022-01-02 16:06 | disposition home or self-care (01) | LOC: JD.ED 15:23 | DX: B07.0 Plantar wart (principal); Z79.899 Other long term (current) drug therapy; Z86.16 Personal history of COVID-19; Z90.49 Acquired absence of other specified parts of digestive tract; Z91.038 Other insect allergy status | CPT/HCPCS: 99283 ==

== ENCOUNTER 2022-01-08 08:54 | Emergency (ER) | payer MEDICAID ==
[2022-01-08 10:03] LABS: ESTIMATED GFR > 60 mL/min (>60)
== END 2022-01-08 12:10 | disposition home or self-care (01) ==
LOC: JD.ED 08:54 → SUPCPDRO 08:54 → JD.ED 12:10
DX: O26.852 Spotting complicating pregnancy, second trimester (principal); Z3A.16 16 weeks gestation of pregnancy; Z79.899 Other long term (current) drug therapy; Z91.038 Other insect allergy status; Z86.16 Personal history of COVID-19; Z90.49 Acquired absence of other specified parts of digestive tract
CPT/HCPCS: 36415; 76815; 76815-26; 80053; 81001; 85025; 85610; 85730; 86850; 86900; 86901; 87086; 87088; 87186; 99284; 99284-25

== ENCOUNTER 2022-01-20 10:36 | Emergency (ER) | payer MEDICAID ==
[2022-01-20 11:53] LABS: ESTIMATED GFR 143 mL/min (>60)
== END 2022-01-20 12:50 | disposition home or self-care (01) ==
LOC: JD.ED 10:36
DX: O99.612 Diseases of the digestive system complicating pregnancy, second trimester (principal); A08.4 Viral intestinal infection, unspecified; Z91.09 Other allergy status, other than to drugs and biological substances; Z3A.18 18 weeks gestation of pregnancy
CPT/HCPCS: 36415; 76815; 76815-26; 80053; 81001; 85025; 99284-25

== ENCOUNTER 2022-02-04 10:28 | Observation (INO) | payer MEDICAID ==
[2022-02-04] MEDS ORDERED: Acetaminophen 325 MG Tab PO ONE (11:05)
[2022-02-04] MEDS ORDERED: Sodium Chloride 0.9% 10 ML Syringe FLUSH PRN (12:35)
[2022-02-04] MEDS ORDERED: oxyCODONE 5 MG Tab PO ONE ×2 (12:41→17:05)
[2022-02-04] MEDS ORDERED: ceFAZolin 2 GM in Sodium Chloride 0.9% 50 ML IV SCH (12:45)
[2022-02-04] MEDS: Lactated Ringers 1,000 ML IV SCH ×2 (13:22→20:49)
[2022-02-04] MEDS ORDERED: oxyCODONE 5 MG Tab PO PRN (13:30)
[2022-02-04] MEDS: Ondansetron 4 MG/2 ML SDV IVPUSH PRN (13:47)
[2022-02-04] MEDS: Acetaminophen 325 MG Tab PO PRN (18:30)
[2022-02-04] MEDS: ceFAZolin 1 GM in Sodium Chloride 0.9% 50 ML IV SCH (19:21)
[2022-02-04] MEDS: oxyCODONE 5 MG Tab PO PRN (20:03)
[2022-02-05] MEDS: Sodium Chloride 0.9% 10 ML Syringe FLUSH SCH ×2 (00:07→10:44)
[2022-02-05] MEDS: ceFAZolin 1 GM in Sodium Chloride 0.9% 50 ML IV SCH ×3 (00:08→12:11)
[2022-02-05] MEDS: Ondansetron 4 MG/2 ML SDV IVPUSH PRN ×4 (00:16→19:45)
[2022-02-05] MEDS: Acetaminophen 325 MG Tab PO PRN ×3 (00:35→19:44)
[2022-02-05] MEDS: oxyCODONE 5 MG Tab PO PRN ×6 (01:12→23:45)
[2022-02-05] MEDS: Lactated Ringers 1,000 ML IV SCH ×3 (04:31→19:48)
[2022-02-05] MEDS: Ampicillin 1 GM in Sodium Chloride 0.9% 100 ML IV SCH ×2 (12:45→18:43)
[2022-02-06] MEDS: Ampicillin 1 GM in Sodium Chloride 0.9% 100 ML IV SCH ×4 (01:08→18:40)
[2022-02-06] MEDS: Acetaminophen 325 MG Tab PO PRN ×3 (02:25→18:42)
[2022-02-06] MEDS: Lactated Ringers 1,000 ML IV SCH ×3 (04:14→19:29)
[2022-02-06] MEDS: oxyCODONE 5 MG Tab PO PRN ×4 (04:14→22:50)
[2022-02-06] MEDS: Sodium Chloride 0.9% 10 ML Syringe FLUSH SCH ×2 (05:13→09:27)
[2022-02-06] MEDS: Ondansetron 4 MG/2 ML SDV IVPUSH PRN (14:29)
[2022-02-07] MEDS: Ampicillin 1 GM in Sodium Chloride 0.9% 100 ML IV SCH ×2 (00:53→06:35)
[2022-02-07] MEDS: Sodium Chloride 0.9% 10 ML Syringe FLUSH SCH (03:00)
[2022-02-07] MEDS: Lactated Ringers 1,000 ML IV SCH (04:42)
[2022-02-07] MEDS: Acetaminophen 325 MG Tab PO PRN (04:45)
== END 2022-02-07 10:30 | disposition home or self-care (01) ==
LOC: JD.OBCHECK 10:28 → JD.OB 10:29 → JD.OBCHECK 12:35 → JD.OB 17:27
PROVIDERS: ADMIT Obstetrics & Gynecology; ATTEND Obstetrics & Gynecology
DX: O23.02 Infections of kidney in pregnancy, second trimester (principal); O23.42 Unspecified infection of urinary tract in pregnancy, second trimester; Z3A.19 19 weeks gestation of pregnancy; N39.0 Urinary tract infection, site not specified; Z79.899 Other long term (current) drug therapy
CPT/HCPCS: 36415; 76770; 80170; 81001; 82565; 85025; 87086; 87088; 87186; 96365; 96366; 96367; 96375; 96376; A9270; G0378; J0290; J0690; J1580; J2405; J7120

== ENCOUNTER 2022-03-24 11:05 | Emergency (ER) | payer MEDICAID | END 2022-03-24 12:00 | disposition home or self-care (01) | LOC: JD.ED 11:05 | DX: O9A.23 Injury, poisoning and certain other consequences of external causes complicating the puerperium (principal); S90.31XA Contusion of right foot, initial encounter; Z91.09 Other allergy status, other than to drugs and biological substances; Z3A.01 Less than 8 weeks gestation of pregnancy; W22.09XA Striking against other stationary object, initial encounter | CPT/HCPCS: 99282; 99283 ==

== ENCOUNTER 2022-04-28 16:52 | Emergency (ER) | payer OTHER, MEDICAID ==
[2022-04-28] MEDS ORDERED: Sodium Chloride 0.9% 1,000 ML IV SCH (17:00)
== END 2022-04-28 18:35 | disposition other institution (70) ==
LOC: JD.ED 16:52
DX: O9A.213 Injury, poisoning and certain other consequences of external causes complicating pregnancy, third trimester (principal); R10.30 Lower abdominal pain, unspecified; Z3A.32 32 weeks gestation of pregnancy; Z91.048 Other nonmedicinal substance allergy status; Z79.899 Other long term (current) drug therapy; Z86.16 Personal history of COVID-19; Z90.49 Acquired absence of other specified parts of digestive tract; V49.40XA Driver injured in collision with unspecified motor vehicles in traffic accident, initial encounter; Y92.410 Unspecified street and highway as the place of occurrence of the external cause
CPT/HCPCS: 36415; 80053; 85025; 85610; 86850; 86900; 86901; 99283; 99284

== ENCOUNTER 2022-04-28 17:50 | Observation (INO) | payer OTHER, MEDICAID ==
[2022-04-28] MEDS ORDERED: Sodium Chloride 0.9% 10 ML Syringe FLUSH SCH (21:00)
[2022-04-28] MEDS: Acetaminophen 325 MG Tab PO PRN (21:06)
[2022-04-29] MEDS: Acetaminophen 325 MG Tab PO PRN (09:27)
== END 2022-04-29 15:05 | disposition home or self-care (01) ==
LOC: JD.OBCHECK 17:50 → JD.OB 17:51 → JD.OBCHECK 19:25 → UNDOADMOB 19:25 → JD.OB 19:25 → UNDOADMOB 19:47 → JD.OB 19:47 → UNDOADMOB 21:38 → JD.OB 21:38
PROVIDERS: ADMIT Obstetrics & Gynecology; ATTEND Obstetrics & Gynecology
DX: O9A.213 Injury, poisoning and certain other consequences of external causes complicating pregnancy, third trimester (principal); O99.891 Other specified diseases and conditions complicating pregnancy; R10.9 Unspecified abdominal pain; O99.613 Diseases of the digestive system complicating pregnancy, third trimester; K21.9 Gastro-esophageal reflux disease without esophagitis; O99.343 Other mental disorders complicating pregnancy, third trimester; F41.9 Anxiety disorder, unspecified; F32.A Depression, unspecified; Z3A.31 31 weeks gestation of pregnancy; Z86.16 Personal history of COVID-19; Z90.49 Acquired absence of other specified parts of digestive tract; Z91.038 Other insect allergy status; Z79.899 Other long term (current) drug therapy; V89.2XXA Person injured in unspecified motor-vehicle accident, traffic, initial encounter
CPT/HCPCS: 59025; A9270; G0378

== ENCOUNTER 2022-06-26 19:27 | Inpatient (IN) | payer MEDICAID ==
[2022-06-26] MEDS ORDERED: Sodium Chloride 0.9% 10 ML Syringe FLUSH PRN (20:16)
[2022-06-26] MEDS ORDERED: Ondansetron 4 MG/2 ML SDV IVPUSH PRN (20:16)
[2022-06-26] MEDS ORDERED: Nalbuphine HCl 10 MG/ 1ML Amp IVPUSH PRN (20:16)
[2022-06-26] MEDS ORDERED: Ampicillin 2 GM in Sodium Chloride 0.9% 100 ML IV ONE (20:16)
[2022-06-26] MEDS: Lactated Ringers 1,000 ML IV SCH ×3 (20:38→23:21)
[2022-06-26] MEDS ORDERED: Sodium Chloride 0.9% 10 ML Syringe FLUSH SCH (21:00)
[2022-06-26] MEDS ORDERED: ePHEDrine 50 MG/ML SDV IVPUSH PRN (21:28)
[2022-06-26] MEDS ORDERED: diphenhydrAMINE 50 MG/ML SDV IVPUSH PRN (21:28)
[2022-06-26] MEDS ORDERED: fentaNYL 100 MCG/2 ML SDV EPIDUR PRN (21:28)
[2022-06-26] MEDS: Bupivacaine/fentaNYL/NS 100 ML Bag EPIDUR PRN (22:27)
[2022-06-27] MEDS: Ampicillin 1 GM in Sodium Chloride 0.9% 100 ML IV SCH ×4 (00:31→12:34)
[2022-06-27] MEDS: Oxytocin/Lactated Ringers 10 UNIT/1,000 ML BAG IV SCH ×2 (02:54→16:45)
[2022-06-27] MEDS: Lactated Ringers 1,000 ML IV SCH ×2 (02:55→13:44)
[2022-06-27] MEDS ORDERED: Lidocaine 1% 10 ML MDV ONE (04:00)
[2022-06-27] MEDS: Bupivacaine/fentaNYL/NS 100 ML Bag EPIDUR PRN (07:46)
[2022-06-27] MEDS ORDERED: Acetaminophen 325 MG Tab PO PRN (18:44)
[2022-06-27] MEDS ORDERED: Witch Hazel Medicated Pads 40/Jar TOP PRN (18:44)
[2022-06-27] MEDS ORDERED: Benzocaine/Menthol 20%-0.5% Spray 78 GM Cannister TOP PRN (18:44)
[2022-06-27] MEDS: Docusate Sodium 100 MG Cap PO PRN (20:39)
[2022-06-27] MEDS: Ibuprofen 600 MG Tab PO PRN (20:39)
[2022-06-28] MEDS: Ibuprofen 600 MG Tab PO PRN ×3 (05:11→17:25)
[2022-06-28] MEDS: Prenatal Multivitamin with Calcium/Folic Acid/Iron Tab PO SCH (09:46)
[2022-06-28] MEDS: Docusate Sodium 100 MG Cap PO PRN (09:46)
[2022-06-29] MEDS: Ibuprofen 600 MG Tab PO PRN (04:44)
[2022-06-29] MEDS: Prenatal Multivitamin with Calcium/Folic Acid/Iron Tab PO SCH (10:35)
[2022-06-29] MEDS: Docusate Sodium 100 MG Cap PO PRN (10:35)
== END 2022-06-29 11:05 | disposition home or self-care (01) | DRG 806 ==
LOC: JD.OBCHECK 19:27 → JD.OB 19:29 → JD.OBCHECK 20:15 → JD.OB 20:16 → OBSVTOIN 06-27 16:15 → JD.OB 06-27 16:16
PROVIDERS: ADMIT Obstetrics & Gynecology; ATTEND Obstetrics & Gynecology
PROC: 10D07Z6 Extraction of Products of Conception, Vacuum, Via Natural or Artificial Opening (ICD-10-PCS; principal; 2022-06-27)
PROC: 0KQM0ZZ Repair Perineum Muscle, Open Approach (ICD-10-PCS; 2022-06-27)
PROC: 10907ZC Drainage of Amniotic Fluid, Therapeutic from Products of Conception, Via Natural or Artificial Opening (ICD-10-PCS; 2022-06-27)
PROC: 3E0R3BZ Introduction of Anesthetic Agent into Spinal Canal, Percutaneous Approach (ICD-10-PCS; 2022-06-27)
DX: O99.824 Streptococcus B carrier state complicating childbirth (principal); O98.52 Other viral diseases complicating childbirth; Z37.0 Single live birth; B00.9 Herpesviral infection, unspecified; O70.1 Second degree perineal laceration during delivery; Z3A.39 39 weeks gestation of pregnancy; Z91.09 Other allergy status, other than to drugs and biological substances; Z86.16 Personal history of COVID-19; Z90.49 Acquired absence of other specified parts of digestive tract; O99.02 Anemia complicating childbirth; D64.9 Anemia, unspecified
CPT/HCPCS: 36415; 51702; 59025; 59409; 85025; 86592; A9270-GY; J0290; J2405; J2590; J3010; J7120

== ENCOUNTER 2022-09-28 17:48 | Emergency (ER) | payer MEDICAID ==
[2022-09-28] MEDS ORDERED: Ondansetron 4 MG/2 ML SDV IVPUSH ONE (18:15)
[2022-09-28] MEDS ORDERED: Sodium Chloride 0.9% 10 ML Syringe FLUSH PRN (18:15)
[2022-09-28] MEDS ORDERED: Sodium Chloride 0.9% 1,000 ML IV ONE (18:15)
== END 2022-09-28 21:11 | disposition home or self-care (01) ==
LOC: JD.ED 17:48
DX: R10.9 Unspecified abdominal pain (principal); R11.2 Nausea with vomiting, unspecified; Z91.038 Other insect allergy status
CPT/HCPCS: 36415; 80053; 81001; 81025; 85025; 96361; 96374; 99283; J2405; J3490; J7030; 99284

== ENCOUNTER 2023-11-28 22:00 | Emergency (ER) | payer MEDICAID ==
[2023-11-28] MEDS: Sodium Chloride 0.9% 1,000 ML IV ONE (22:47)
[2023-11-28 22:48] LABS: BASOPHILS PERCENT AUTO 0.2 % (0.0-1.0); EOSINOPHILS ABSOLUTE AUTO 0.1 K/mm3 (0.0-0.4); EOSINOPHILS PERCENT AUTO 0.7 % (0.0-6.0); HEMATOCRIT 40.6 % (37.0-47.0); HEMOGLOBIN 14.1 gm/dl (12.0-16.0); IMMATURE GRAN ABSOLUTE AUTO 0.03 K/mm3 (0.00-0.05); IMMATURE GRAN PERCENT AUTO 0.2 % (0.0-0.4); LYMPHOCYTES ABSOLUTE AUTO 1.7 K/mm3 (1.0-4.8); MEAN CORPUSCULAR HEMOGLOBIN 31.9 pg (28.0-32.0); MEAN CORPUSCULAR HGB CONC 34.7 g/dl (32.0-36.0); MEAN CORPUSCULAR VOLUME 91.9 fl (83.0-99.0); MEAN PLATELET VOLUME 10.3 fl (9.4-12.3); MONOCYTES ABSOLUTE AUTO 0.5 K/mm3 (0.0-0.8); MONOCYTES PERCENT AUTO 3.9 % (0.0-8.0); NEUTROPHILS ABSOLUTE AUTO 10.8 K/mm3 (1.8-7.7); PLATELET COUNT,PLT 316 K/mm3 (150-400); RED BLOOD CELL COUNT 4.42 M/mm3 (4.10-5.30); WHITE BLOOD CELL COUNT,WBC 13.13 K/mm3 (3.9-11.3)
[2023-11-28 22:49] LABS: APPEARANCE,URINE CLEAR (Clear); BILIRUBIN,URINE NEGATIVE (Negative); COLOR,URINE YELLOW (Yellow); GLUCOSE,URINE NEGATIVE (Negative); KETONES,URINE 1+ (Negative); LEUKOCYTE ESTERASE,URINE NEGATIVE (Negative); NITRITE,URINE NEGATIVE (Negative); OCCULT BLOOD,URINE NEGATIVE (Negative); PH,URINE 7.5 (5.0-8.0); PROTEIN,URINE 1+ (Negative)
[2023-11-28 23:10] LABS: RBC,URINE 0-5 /hpf (0-5)
[2023-11-28 23:11] LABS: BACTERIA,URINE FEW /hpf (FEW); EPITHELIAL CELLS,URINE 0-5 /hpf (0-5); MUCUS,URINE MODERATE /hpf (FEW); WBC,URINE 0-5 /hpf (0-5)
[2023-11-28 23:14] LABS: ALBUMIN 4.1 g/dl (3.4-5.0); ANION GAP 13.8 (5-15); BUN/CREATININE RATIO 8.8 (14-18); CALCIUM 9.1 mg/dL (8.5-10.1); CREATININE 0.8 mg/dL (0.55-1.02); EST CRCL DRUG DOSING (CG) 89.7 mL/min; POTASSIUM,K 3.8 mEq/L (3.5-5.1); PROTEIN TOTAL,TP 8.2 g/dl (6.4-8.2)
[2023-11-29] MEDS: prednisoLONE Soln 15 MG/5 ML UD Cup PO ONE (00:32)
[2023-11-29] MEDS: Ondansetron 4 MG/2 ML SDV IVPUSH ONE (00:32)
== END 2023-11-29 00:48 | disposition home or self-care (01) ==
LOC: JD.ED 22:00
DX: J02.8 Acute pharyngitis due to other specified organisms (principal); R11.2 Nausea with vomiting, unspecified; Z91.038 Other insect allergy status; Z79.899 Other long term (current) drug therapy; Z86.16 Personal history of COVID-19
CPT/HCPCS: 36415; 80053; 81001; 84703; 85025; 87651-QW; 96361; 96374; 99284; 99284-25; A9270-GY; J2405; J7030